=== PATIENT | female | born 1965 | race Caucasian/White ===

== ENCOUNTER 2018-05-20 14:07 | Emergency (ER) | payer OTHER ==
--- NOTE | 2018-05-20 15:09 | RAD REPORT ---
EXAM DESCRIPTION: Ilan Orr And Carissa (2 Views)05/20/2018 2:47 pm CLINICAL HISTORY: Cough COMPARISON: None FINDINGS: The lungs appear clear of acute infiltrate. The heart is normal size Lungs are hyperaerated. 30 millimeter oval structure overlies mid chest of on certain etiology. It ma y be related to prior surgery should be correlated clinically
--- NOTE | 2018-05-20 15:22 | RAD REPORT ---
EXAM DESCRIPTION: RAD - Foot Right 3 View - 05/20/2018 2:48 pm CLINICAL HISTORY: Right foot pain status post injury FINDINGS: No fracture or dislocation is seen. Soft tissue laceration involves the plantar aspect of the foot. A radiopaque foreign body not seen
[2018-05-20] MEDS ORDERED: LIDOCAINE 1% MPF 2 ML AMPULE ONE ×2 (15:45→16:18)
[2018-05-20] MEDS ORDERED: ALBUTEROL 2.5 MG/3 ML NEB SOL ONE (15:46)
[2018-05-20] MEDS ORDERED: IPRATROPIUM BROM 0.5MG/2.5ML ONE (15:46)
[2018-05-20] MEDS ORDERED: DOXYCYCLINE 100 MG CAP PO ONE (15:47)
[2018-05-20] MEDS ORDERED: NA CHLORIDE 0.9% 1,000 ML ONE (15:47)
[2018-05-20] MEDS ORDERED: FENTANYL CITR 100 MCG/2 ML ONE (15:47)
[2018-05-20] MEDS ORDERED: METHYLPREDNISOLONE 125 MG INJ ONE (15:59)
--- NOTE | 2018-05-20 16:35 | ER ---
Nurse's Notes [facility] Name: Ana Paula Gillis Age: 52 yrs Sex: Female : 1965 Arrival Date: 05/20/2018 Time: 14:09 Bed 19 Private MD: None, None Diagnosis: Acute bronchitis;Emphysema;Laceration without foreign body, right foot Presentation: 05/20 14:23 Presenting complaint: Patient states: "I stepped on glass about 30 minutes ago, and I aj1 think there some still stuck in my foot, also I'm really short of breath and I think I have pneumonia" Wound noted to right foot. Patient reports productive cough for the past 2 days. Shortness of breath when she has coughing spells. Transition of care: patient was not received from another setting of care. Onset of symptoms was May 18, 2018. Risk Assessment: Do you want to hurt yourself or someone else? Patient reports no desire to harm self or others. Initial Sepsis Screen: Does the patient meet any 2 criteria? No. Patient's initial sepsis screen is negative. Does the patient have a suspected source of infection? Yes: Productive cough/pneumonia. Care prior to arrival: None. 14:23 Method Of Arrival: Wheelchair aj1 14:23 Acuity: KURT 3 aj1 Triage Assessment: 14:27 General: Appears in no apparent distress. uncomfortable, Behavior is calm, cooperative, aj1 appropriate for age. Pain: Complains of pain in right foot Pain currently is 10 out of 10 on a pain scale. Neuro: Level of Consciousness is awake, alert, obeys commands. Cardiovascular: Patient's skin is warm and dry. Respiratory: Reports shortness of breath during coughing spells cough that is productive, Airway is patent Respiratory effort is even, unlabored, Respiratory pattern is regular, symmetrical. Musculoskeletal: Range of motion: intact in all extremities. 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 - Social history:: Smoking status: Patient uses tobacco products, smokes one-half pack cigarettes per day. - Ebola Screening: : Patient denies travel to an Ebola-affected area in the 21 days before illness onset. Screenin:20 Abuse screen: Denies threats or abuse. Nutritional screening: No deficits noted. em Tuberculosis screening: No symptoms or risk factors identified. Fall Risk None identified. Assessment: 15:20 General: Appears in no apparent distress. uncomfortable, Behavior is calm, cooperative, em Denies fever. Pain: Complains of pain in right foot Pain currently is 10 out of 10 on a pain scale. Neuro: Level of Consciousness is awake, alert, obeys commands, Oriented to person, place, time, situation. Cardiovascular: Patient's skin is warm and dry. Respiratory: Reports shortness of breath cough that is productive, Airway is patent Respiratory effort is even, unlabored, Respiratory pattern is regular, symmetrical, Breath sounds with wheezes bilaterally. the patient has mild shortness of breath. GI: Abdomen is flat, Patient currently denies nausea, vomiting. : No signs and/or symptoms were reported regarding the genitourinary system. Derm: Skin is intact, is healthy with good turgor, Skin is pink, warm \\T\\ dry. Musculoskeletal: Range of motion: intact in all extremities. Injury Description: Laceration sustained to right foot is clean, 0.5 to 2.5 cm long, was sustained 30-60 minutes ago. a small amount of bleeding noted at this time. 15:35 Reassessment: I agree with previous assessment. hb 16:00 Reassessment: Patient appears in no apparent distress at this time. Patient and/or em family updated on plan of care and expected duration. Pain level reassessed. Patient is alert, oriented x 3, equal unlabored respirations, skin warm/dry/pink. rates pain 8/10 Patient states feeling better. Vital Signs: 14:27 BP 114 / 75; Pulse 76; Resp 18; Temp 97.4; Pulse Ox 98% on R/A; Weight 54.43 kg (R); aj1 Height 5 ft. 9 in. (175.26 cm) (R); Pain 10/10; 15:20 BP 136 / 89; Pulse 82; Resp 20; Pulse Ox 98% on R/A; Pain 10/10; em 16:30 BP 127 / 76; Pulse 71; Resp 16; Pulse Ox 99% on R/A; em 14:27 Body Mass Index 17.72 (54.43 kg, 175.26 cm) aj1 ED Course: 14:09 Patient arrived in ED. sb2 14:10 None, None is Private Physician. sb2 14:25 Triage completed. aj1 14:27 Arm band placed on Patient placed in waiting room, Patient notified of wait time. aj1 14:47 XRAY Chest Pa And Lat (2 Views) In Process Unspecified. EDMS 14:47 XRAY Foot RIGHT 3 View In Process Unspecified. EDMS 15:00 Deniz Schultz LVN is Primary Nurse. em 15:16 Herrera Garrison PA is PHCP. jr8 15:16 Kalia Knight MD is Attending Physician. jr8 15:20 Patient has correct armband on for positive identification. Placed in gown. Bed in low em position. Call light in reach. Adult w/ patient. Pulse ox on. NIBP on. 15:50 Inserted saline lock: 22 gauge in right forearm, using aseptic technique. em 16:57 No provider procedures requiring assistance completed. IV discontinued, intact, em bleeding controlled, No redness/swelling at site. Pressure dressing applied. Administered Medications: 15:42 Drug: Albuterol - atroVENT (3:1) (2.5 mg - 0.5 mg) 3 ml Route: Nebulizer; em 16:46 Follow up: Response: No adverse reaction; Marked relief of symptoms em 15:48 Drug: NS 0.9% 1000 ml Route: IV; Rate: 1000 ml; Site: right forearm; em 17:00 Follow up: IV Status: Completed infusion; IV Intake: 1000ml em 15:48 Drug: Doxycycline 100 mg Route: PO; em 16:47 Follow up: Response: No adverse reaction em 15:57 Drug: SOLU-Medrol 125 mg Route: IVP; Site: right forearm; hb 16:46 Follow up: Response: No adverse reaction em 15:57 Drug: fentaNYL (PF) 50 mcg Route: IVP; Site: right forearm; hb 16:47 Follow up: Response: No adverse reaction; Pain is decreased em 16:38 Drug: Ativan 0.5 mg Route: PO; em 16:59 Follow up: Response: No adverse reaction; Marked relief of symptoms em Intake: 17:00 IV: 1000ml; Total: 1000ml. em Outcome: 16:34 Discharge ordered by MD. landa 16:57 Discharged to home with crutches. em 16:57 Condition: good 16:57 Discharge instructions given to patient, family, Instructed on discharge instructions, follow up and referral plans. no drinking with medication, no driving heavy equipment, medication usage, crutch walking, wound care, Demonstrated understanding of instructions, follow-up care, medications, wound care, crutch walking, Prescriptions given X 4. 17:00 Patient left the ED. em Signatures: Dispatcher [employer] Ricarda Scott RN RN aj1 Deniz Schultz LVN POND SAWYER em Herrera Garrison PA PA jr8 Naila Claudio RN RN hb Billeau, Sheri sb2 Corrections: (The following items were deleted from the chart) 16:05 15:20 No provider procedures requiring assistance completed. em em
--- NOTE | 2018-05-20 16:35 | EDPHYS ---
Physician Documentation [facility] Name: Ana Paula Gillis Age: 52 yrs Sex: Female : 1965 Arrival Date: 05/20/2018 Time: 14:09 Bed 19 Private MD: None, None ED Physician Kalia Knight HPI: 05/20 16:55 This 52 yrs old Female presents to ER via Wheelchair with complaints of Foot jr8 Injury - GLASS, POSS PNEUMONIA. 16:55 Onset: The symptoms/episode began/occurred acutely, today. Severity of symptoms: At jr8 their worst the symptoms were moderate, in the emergency department the symptoms are unchanged. The patient has not experienced similar symptoms in the past. The patient has not recently seen a physician. Patient came to ED with two different complaints. First was she accidently stepped on glass causing threw and threw laceration to right foot. Second was shortness of breath and cough over the past couple of days that has progressively worsened. History of emphysema . 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 - Social history:: Smoking status: Patient uses tobacco products, smokes one-half pack cigarettes per day. - Ebola Screening: : Patient denies travel to an Ebola-affected area in the 21 days before illness onset. ROS: 16:55 Eyes: Negative for injury, pain, redness, and discharge, ENT: Negative for injury, jr8 pain, and discharge, Neck: Negative for injury, pain, and swelling, Cardiovascular: Negative for chest pain, palpitations, and edema, Abdomen/GI: Negative for abdominal pain, nausea, vomiting, diarrhea, and constipation, Back: Negative for injury and pain, MS/Extremity: Negative for injury and deformity, Neuro: Negative for headache, weakness, numbness, tingling, and seizure. 16:55 Respiratory: Positive for cough, shortness of breath, wheezing. 16:55 Skin: Positive for laceration(s), of the . Exam: 16:55 Eyes: Pupils equal round and reactive to light, extra-ocular motions intact. Lids and jr8 lashes normal. Conjunctiva and sclera are non-icteric and not injected. Cornea within normal limits. Periorbital areas with no swelling, redness, or edema. ENT: Nares patent. No nasal discharge, no septal abnormalities noted. Tympanic membranes are normal and external auditory canals are clear. Oropharynx with no redness, swelling, or masses, exudates, or evidence of obstruction, uvula midline. Mucous membranes moist. Neck: Trachea midline, no thyromegaly or masses palpated, and no cervical lymphadenopathy. Supple, full range of motion without nuchal rigidity, or vertebral point tenderness. No Meningismus. Cardiovascular: Regular rate and rhythm with a normal S1 and S2. No gallops, murmurs, or rubs. Normal PMI, no JVD. No pulse deficits. Abdomen/GI: Soft, non-tender, with normal bowel sounds. No distension or tympany. No guarding or rebound. No evidence of tenderness throughout. Back: No spinal tenderness. No costovertebral tenderness. Full range of motion. MS/ Extremity: Pulses equal, no cyanosis. Neurovascular intact. Full, normal range of motion. Neuro: Awake and alert, GCS 15, oriented to person, place, time, and situation. Cranial nerves II-XII grossly intact. Motor strength 5/5 in all extremities. Sensory grossly intact. Cerebellar exam normal. Normal gait. 16:55 Respiratory: the patient does not display signs of respiratory distress, Respirations: normal, symetrical, no use of accessory muscles, no grunting, no evidence of nasal flaring, no prolonged exhalations, no pursed lip breathing, no retractions, no shallow respirations, no splinting, no tachypnea, Breath sounds: rhonchi, that are mild, are heard diffusely, wheezing: expiratory that is moderate, is heard diffusely. 16:55 Skin: two lacerations noted to right foot. First to right lateral heel. Second to side of heel where glass shard had exited foot. Vital Signs: 14:27 BP 114 / 75; Pulse 76; Resp 18; Temp 97.4; Pulse Ox 98% on R/A; Weight 54.43 kg (R); aj1 Height 5 ft. 9 in. (175.26 cm) (R); Pain 10/10; 15:20 BP 136 / 89; Pulse 82; Resp 20; Pulse Ox 98% on R/A; Pain 10/10; em 16:30 BP 127 / 76; Pulse 71; Resp 16; Pulse Ox 99% on R/A; em 14:27 Body Mass Index 17.72 (54.43 kg, 175.26 cm) aj1 Laceration: 16:31 Wound Repair of 2.5cm ( 1.0in ) subcutaneous laceration to right foot. Irregularly jr8 shaped.. Minimal bleeding noted.. Distal neuro/vascular/tendon intact. Anesthesia: Local anesthetic administered with 4 mls of 1% lidocaine. Wound prep: Extensive cleansing with betadine by me, Wound irrigation with saline by me, Wound explored extensively, Copious irrigation. Skin closed with 3 3-0 Prolene using interrupted sutures and sterile technique. Patient tolerated well. 16:31 Wound Repair of 2cm ( 0.8in ) subcutaneous laceration to right foot. Irregularly jr8 shaped.. Minimal bleeding noted.. Distal neuro/vascular/tendon intact. Anesthesia: Local anesthetic administered with 2 mls of 1% lidocaine. Wound prep: Extensive cleansing with betadine, Wound irrigation with saline, Wound explored extensively, Copious irrigation. Skin closed with 2 3-0 Prolene using interrupted sutures and sterile technique. Patient tolerated well. MDM: 15:16 Patient medically screened. jr8 16:31 Data reviewed: vital signs, nurses notes, radiologic studies, plain films, and as a jr8 result, I will discharge patient. Data interpreted: Pulse oximetry: on room air is 98 %. Interpretation: normal. Counseling: I had a detailed discussion with the patient and/or guardian regarding: the historical points, exam findings, and any diagnostic results supporting the discharge/admit diagnosis, radiology results, the need for outpatient follow up, a family practitioner, to return to the emergency department if symptoms worsen or persist or if there are any questions or concerns that arise at home. Response to treatment: the patient's symptoms have markedly improved after treatment. 05/20 14:28 Order name: XRAY Chest Pa And Lat (2 Views); Complete Time: 15:34 aj1 05/20 14:29 Order name: XRAY Foot RIGHT 3 View; Complete Time: 15:34 aj1 05/20 15:33 Order name: IV; Complete Time: 15:48 jr8 05/20 16:33 Order name: Crutches; Complete Time: 16:37 jr8 Administered Medications: 15:42 Drug: Albuterol - atroVENT (3:1) (2.5 mg - 0.5 mg) 3 ml Route: Nebulizer; em 16:46 Follow up: Response: No adverse reaction; Marked relief of symptoms em 15:48 Drug: NS 0.9% 1000 ml Route: IV; Rate: 1000 ml; Site: right forearm; em 17:00 Follow up: IV Status: Completed infusion; IV Intake: 1000ml em 15:48 Drug: Doxycycline 100 mg Route: PO; em 16:47 Follow up: Response: No adverse reaction em 15:57 Drug: SOLU-Medrol 125 mg Route: IVP; Site: right forearm; hb 16:46 Follow up: Response: No adverse reaction em 15:57 Drug: fentaNYL (PF) 50 mcg Route: IVP; Site: right forearm; hb 16:47 Follow up: Response: No adverse reaction; Pain is decreased em 16:38 Drug: Ativan 0.5 mg Route: PO; em 16:59 Follow up: Response: No adverse reaction; Marked relief of symptoms em Disposition: 05/20/18 16:34 Discharged to Home. Impression: Acute bronchitis, Emphysema, Laceration without foreign body, right foot. - Condition is Stable. - Discharge Instructions: Acute Bronchitis, Adult, Laceration Care, Adult. - Prescriptions for Prednisone 20 mg Oral Tablet - take 1 tablet by ORAL route once daily for 5 days; 5 tablet. Tylenol- Codeine #3 300-30 mg Oral Tablet - take 2 tablets by ORAL route every 6 hours As needed; 12 tablet. Doxycycline Monohydrate 100 mg Oral Tablet - take 1 tablet by ORAL route every 12 hours for 10 days; 20 tablet. Albuterol Sulfate 90 mcg/actuation - inhale 1-2 puff by INHALATION route every 4-6 hours; 1 Inhaler. - Medication Reconciliation Form, Thank You Letter, Antibiotic Education, Prescription Opioid Use form. - Follow up: Private Physician; When: 7 - 10 days; Reason: Wound Recheck, Recheck today's complaints, Continuance of care, Staple/Suture removal, Re-evaluation by your physician. - Problem is new. - Symptoms have improved. Addendum: 05/31/2018 07:29 Co-signature as Attending Physician, Kalia Knight MD I agree with the assessment and k dr plan of care. Signatures: Dispatcher [employer] Ricarda Scott, RN RN aj1 Kalia Knight MD MD [facility] Deniz Schultz, CARE TRANSITIONS MANAGER CARE TRANSITIONS MANAGER em Herrera Garrison, TERESA PA jr8 Naila Claudio, THEO RN Corrections: (The following items were deleted from the chart) 05/20 17:00 16:34 05/20/2018 16:34 Discharged to Home. Impression: Acute bronchitis; Emphysema; em Laceration without foreign body, right foot. Condition is Stable. Forms are Medication Reconciliation Form, Thank You Letter, Antibiotic Education, Prescription Opioid Use. Follow up: Private Physician; When: 7 - 10 days; Reason: Wound Recheck, Recheck today's complaints, Continuance of care, Staple/Suture removal, Re-evaluation by your physician. Problem is new. Symptoms have improved. jr8
[2018-05-20] MEDS ORDERED: LORAZEPAM 0.5 MG TABLET ONE (16:42)
--- OUTSIDE RECORDS SUMMARY | 2018-05-21 17:31 | XMS REPORT | Clinical Summary ---
:1965 Author Organization [facility] Address [address] [place] [address] Care Team Providers Name Role Phone Asked, No Pcp Primary Care Provider Unavailable Allergies No Known Allergies Medications Medication Sig Dispensed Refills Start Date End Date Status ondansetron ODT Take 1 tablet 20 tablet 0 05/01/2017 05/21/2017 (ZOFRAN ODT) 4 MG (4 mg total) by disintegrating tablet mouth every 8 (eight) hours as needed for nausea or vomiting for up to 20 days. Active Problems Not on file Social History Tobacco Use Types Packs/Day Years Used Date Current Every Day Smoker Cigarettes 1 Smokeless Tobacco: Never Used Alcohol Use Drinks/Week oz/Week Comments No Sex Assigned at Date Recorded Not on file Job Start Date Occupation Industry Not on file Not on file Not on file Travel History Travel Start Travel End No recent travel history available. Last Filed Vital Signs Not on file Plan of Treatment Health Maintenance Due Date Last Done Comments CERVICAL CANCER SCREENING 1985 BREAST CANCER SCREENING 2014 COLON CANCER SCREENING 2014 SHINGLES VACCINES (1 of 2) 2014 INFLUENZA VACCINE 12/30/2017 Results Not on fileafter 05/19/2017 Insurance Payer Benefit Plan / Group Subscriber ID Type Phone Address [facility] x[facility]xxx [employer] Advance Directives Patient has advance care planning documents on file. For more information, please contact:[place] [phone] [place] [address]
--- OUTSIDE RECORDS SUMMARY | 2018-05-21 17:32 | XMS REPORT | Clinical Summary ---
:1965 Author Organization [facility] Address [address] [place] [address] Care Team Providers Name Role Phone Pcp, No Primary Care Provider Unavailable Allergies No Known Allergies Medications Medication Sig Dispensed Refills Start Date End Date Status potassium 99 mg Take by 0 Active TabIndications: mouth daily. Chronic hepatitis C without hepatic coma (HCC) milk thistle 175 mg Take 175 mg 0 Active tabletIndications: by mouth Chronic hepatitis C daily. without hepatic coma (HCC) MULTIVITAMIN ORAL Take 1 0 03/28/2018 Discontinued tablet by mouth daily. aspirin 81 MG EC Take 81 mg 0 03/28/2018 Discontinued tablet by mouth daily. clonazePAM (KLONOPIN) Take 0.5 mg 0 02/25/2018 Discontinued 0.5 MG tablet by mouth 2 (two) times daily as needed for Anxiety. QUE[facility] (SEROQUEL) Take 100 mg 0 02/25/2018 Discontinued 100 MG tablet by mouth nightly. atorvastatin Take 80 mg 0 10/03/2016 10/03/2017 (LIPITOR) 40 MG by mouth. tabletIndications: Chronic hepatitis C without hepatic coma (HCC), Abnormal liver enzymes, Hepatic steatosis, Hyperlipidemia, unspecified hyperlipidemia type, Drug abuse (HCC), Immunity status testing Active Problems Problem Noted Date Tobacco abuse 02/28/2018 Other emphysema 02/28/2018 Chronic hepatitis C without hepatic coma 02/19/2017 Abnormal liver enzymes 02/19/2017 Hepatic steatosis 02/19/2017 HLD (hyperlipidemia) 02/19/2017 Drug abuse 02/19/2017 Immunity status testing 02/19/2017 Transient cerebral ischemia, unspecified type 09/06/2016 Encounters Date Type Specialty Care Team Description 02/28/2018 Telephone Hepatology Fritz Rubio, Results BINDERY TECHNICIAN 02/25/2018 Office Visit Hepatology Javier Sánchez Chronic hepatitis C without hepatic coma (HCC) (Primary Dx); Drug abuse; Fritz Rubio, Immunity status testing; BINDERY TECHNICIAN Hepatic steatosis; Abnormal liver enzymes; Tobacco abuse; Other emphysema (HCC) 02/25/2018 Orders Only Hepatology Fritz Rubio, Abnormal liver enzymes BINDERY TECHNICIAN (Primary Dx) 02/10/2018 Telephone Hepatology Jane Kim STARTING HCV THERAPY; MEDICATION UPDATE 11/13/2017 Documentation Hepatology Gracia Cheng RN 07/01/2017 Orders Only Hepatology Jane Kim Chronic hepatitis C without hepatic coma (HCC) 07/01/2017 Orders Only Hepatology Javier Sánchez Chronic hepatitis C without hepatic coma (HCC) (Primary Dx) after 05/19/2017 Family History Medical History Relation Name Comments Heart disease Mother Osteoporosis Mother Relation Name Status Comments Mother Social History Tobacco Use Types Packs/Day Years Used Date Current Every Day Smoker Cigarettes Smokeless Tobacco: Never Used Comments: less than half a pack/day Alcohol Use Drinks/Week oz/Week Comments Yes 2 Glasses of wine 1.2 occassionally Sex Assigned at Date Recorded Not on file Job Start Date Occupation Industry Not on file Not on file Not on file Travel History Travel Start Travel End No recent travel history available. Last Filed Vital Signs Vital Sign Reading Time Taken Blood Pressure 126/82 02/25/2018 2:21 PM CDT Pulse 64 02/25/2018 2:21 PM CDT Temperature 37 C (98.6 F) 02/25/2018 2:21 PM CDT Respiratory Rate 18 02/25/2018 2:21 PM CDT Oxygen Saturation 98% 02/25/2018 2:21 PM CDT Inhaled Oxygen Concentration - - Weight 50.8 kg (112 lb 1.6 oz) 02/25/2018 2:21 PM CDT Height 175.3 cm (5' 9") 02/25/2018 2:21 PM CDT Body Mass Index 16.55 02/25/2018 2:21 PM CDT Plan of Treatment Date Type Specialty Care Team Description 05/31/2018 Office Visit Hepatology [facility] Maintenance Due Date Last Done Comments INFLUENZA VACCINE 03/01/2018 Implants Implanted Type Area Keyboard Action Assembler Device Shelf Model / Identifier Expiration Serial / Date Lot Amplatzer Pfo Occluder IMPLANTS N/A: [employer] 04/30/2021 [id number] / Implanted: Qty: 1 on 09/08/2016 by Alexandre Lawton MD [employer] / [id number] Procedures Procedure Name Priority Date/Time Associated Comments Diagnosis CBC W/PLT COUNT & Routine 02/25/2018 3:48 Chronic hepatitis C Results for this AUTO DIFFERENTIAL PM CDT without hepatic procedure are in coma (HCC) the results section. ALPHA FETOPROTEIN Routine 02/25/2018 3:48 Chronic hepatitis C Results for this (AFP), TUMOR MARKER PM CDT without hepatic procedure are in coma (HCC) the results section. CBC W/PLT COUNT & Routine 02/25/2018 3:48 Chronic hepatitis C Results for this AUTO DIFFERENTIAL PM CDT without hepatic procedure are in coma (HCC) the results section. HEPATIC FUNCTION Routine 02/25/2018 3:48 Chronic hepatitis C Results for this PANEL PM CDT without hepatic procedure are in coma (HCC) the results section. BASIC METABOLIC PANEL Routine 02/25/2018 3:48 Chronic hepatitis C Results for this (7) PM CDT without hepatic procedure are in coma (HCC) the results section. HEPATITIS C PCR, Routine 08/20/2017 3:23 Chronic hepatitis C Results for this QUANTITATIVE PM CDT without hepatic procedure are in coma (HCC) the results section. CBC W/PLT COUNT & Routine 08/20/2017 3:23 Chronic hepatitis C Results for this AUTO DIFFERENTIAL PM CDT without hepatic procedure are in coma (HCC) the results section. HEPATIC FUNCTION Routine 08/20/2017 3:23 Chronic hepatitis C Results for this PANEL PM CDT without hepatic procedure are in coma (HCC) the results section. BASIC METABOLIC PANEL Routine 08/20/2017 3:23 Chronic hepatitis C Results for this (7) PM CDT without hepatic procedure are in coma (HCC) the results section. after 05/19/2017 Results CBC with platelet count + automated diff (02/25/2018 3:48 PM CDT) WBC 6.9 3.5 - 10.5 K/L [facility] RBC 4.66 3.93 - 5.22 M/L [facility] Hemoglobin 14.3 11.2 - 15.7 GM/DL [facility] Hematocrit 46.0 (H) 34.1 - 44.9 % [facility] MCV 98.7 (H) 79.4 - 94.8 fL [facility] MCH 30.7 25.6 - 32.2 pg [facility] MCHC 31.1 (L) 32.2 - 35.5 GM/DL [facility] RDW 13.0 11.7 - 14.4 % [facility] Platelets 216 150 - 450 K/CU MM [facility] MPV 11.0 9.4 - 12.3 fL [facility] nRBC 0 0 - 0 /100 WBC [facility] % Neutros 64 % [facility] % Lymphs 28 % [facility] % Monos 7 % [facility] % Eos 0 % [facility] % Baso 1 % [facility] # Neutros 4.37 1.56 - 6.13 K/L [facility] # Lymphs 1.95 1.18 - 3.74 K/L [facility] # Monos 0.48 (H) 0.24 - 0.36 K/L [facility] # Eos 0.00 (L) 0.04 - 0.36 K/L [facility] # Baso 0.06 0.01 - 0.08 K/L [facility] Immature Granulocytes-Relative 0 0 - 1 % [facility] Specimen Blood Performing Organization Address City/State/Zipcode Phone Number [facility] [address] [place] [address] [phone] CENTER Alpha fetoprotein (AFP), tumor marker (02/25/2018 3:48 PM CDT) Alpha-Fetoprotein 3.6 <10.0 ng/mL [facility] Specimen Blood Performing Organization Address City/[facility] Phone Number [address] [phone] [place] Hepatic function panel (02/25/2018 3:48 PM CDT)Only the most recent of2 resultswithin the time period is included. Protein, Total 8.5 (H) 6.0 - 8.3 gm/dL [facility] Albumin 4.2 3.5 - 5.0 g/dL [facility] Total Bilirubin 0.3 0.2 - 1.2 mg/dL [facility] Bilirubin, Direct 0.2 0.1 - 0.5 mg/dL [facility] Alkaline Phosphatase 114 40 - 150 U/L [facility] AST 178 (H) 5 - 34 U/L [facility] ALT 187 (H) 6 - 55 U/L [facility] Specimen Blood Performing Organization Address City/[facility] Hospitalcode Phone Number [address] [address] [phone] [place] Basic Metabolic Panel (02/25/2018 3:48 PM CDT)Only the most recent of2 resultswithin the time period is included. Sodium 139 136 - 145 meq/L [facility] Potassium 4.7 3.5 - 5.1 meq/L [facility] Chloride 105 98 - 107 meq/L [facility] CO2 28 22 - 29 meq/L [facility] BUN 13 7 - 21 mg/dL [facility] Creatinine 0.79 0.57 - 1.25 mg/dL [facility] Glucose 108 (H) 70 - 105 mg/dL [facility] Calcium 10.1 8.4 - 10.2 mg/dL [facility] EGFR 76Comment: ESTIMATED GFR IS mL/min/1.73 sq m [facility] NOT ACCURATE CREATININE [facility] CENTER CLEARANCE IN PREDICTING GLOMERULAR FILTRATION RATE. ESTIMATED GFR IS NOT APPLICABLE FOR DIALYSIS PATIENTS. Specimen Blood Performing Organization Address City/[facility]/Zipcode Phone Number [facility] [address] [place] [address] [phone] CENTER Hepatitis C RNA, Quantitative (08/20/2017 3:23 PM CDT) Hep C Pcr, Quant 8,680,000 (H) NOT DETECTED IU/mL [facility] HCV RNA, QUANTITATIVE 6.94 (H) NOT DETECTED Log [facility] REAL TIME PCR ([facility]) IU/mL Comment: [facility] Comment: This test was performed using Real-Time Polymerase Chain Reaction. Reportable Range: 15 IU/mL to 100,000,000 IU/mL (1.18 Log IU/mL to 8.00 Log IU/mL). The analytical performance characteristics of this assay have been determined by [facility]. The modifications have not been cleared or approved by the FDA. This assay has been validated pursuant to the CLIA regulations and is used for clinical purposes. For more information on this test, go to: http://education.weezim.com/faq/WYF02q6 (This link is being provided for informational/ educational purposes only.) Specimen Blood Narrative Performed At FASTING:NO [facility] FASTING: NO Resulting Agency Comment Performing Organization Information: Site ID: [id number] Name: [facility] Address: [address] [place] [address] Director: Dr. Juni Esteban Performing Organization Address City/[facility]/Zipcode Phone Number [facility] [address] [place] [address] [facility] CBC with platelet count + automated diff (08/20/2017 3:23 PM CDT) WBC 4.8 3.8 - 10.8 Thousand/uL [facility] RBC 4.24 3.80 - 5.10 Million/uL [facility] Hemoglobin 13.1 11.7 - 15.5 g/dL [facility] Hematocrit 38.9 35.0 - 45.0 % [facility] MCV 91.7 80.0 - 100.0 fL [facility] MCH 30.9 27.0 - 33.0 pg [facility] MCHC 33.7 32.0 - 36.0 g/dL [facility] RDW 12.3 11.0 - 15.0 % [facility] Platelets 194 140 - 400 Thousand/uL [facility] MPV 11.2 7.5 - 12.5 fL [facility] # Neutros 2,794 1,500 - 7,800 cells/uL [facility] # Lymphs 1,584 850 - 3,900 cells/uL [facility] # Monos 384 200 - 950 cells/uL [facility] # Eos 0 (L) 15 - 500 cells/uL [facility] # Baso 38 0 - 200 cells/uL [facility] % Neutros 58.2 % [facility] % Lymphs 33.0 % [facility] % Monos 8.0 % [facility] % Eos 0.0 % [facility] % Baso 0.8 % [facility] Specimen Blood Narrative Performed At FASTING:NO [facility] FASTING: NO Resulting Agency Comment Performing Organization Information: Site ID: [id number] Name: [facility] Address: [address] [place] [id number] Director: Paris Gonzales MD Performing Organization Address City/State/[facility]code Phone Number [facility] [address] [place] [address] [facility] after 05/19/2017 Insurance Payer Benefit Plan / Group Subscriber ID Type Phone Address [place]ICA[place] xxxxxxxxx Medicaid Advance Directives For more information, please contact:[address] [phone] Code Status Date Activated Date Inactivated Comments Full Code 09/08/2016 1:15 PM 09/09/2016 4:53 PM This code status was determined by: Patient Full Code 09/06/2016 3:46 AM 09/08/2016 1:15 PM This code status was determined by: Patient
--- OUTSIDE RECORDS SUMMARY | 2018-05-21 17:32 | XMS REPORT ---
:1965 [facility] [address] [place] [address] Care Team Providers Name Role Phone LIBERTY, EDGAR LOVELL Unavailable Unavailable DANIELLE GARCIA Unavailable Unavailable SHEREE GONZALEZ Unavailable Unavailable JAVIER HWANG Unavailable Unavailable BRYNN WHYTE Unavailable Unavailable Problems This patient has no known problems. Allergies, Adverse Reactions, Alerts This patient has no known allergies or adverse reactions. Medications This patient has no known medications. Results Test Description Test Time Test Comments Text Results Atomic Results Result Comments ALPHA FETOPROTEIN (AFP), TUMOR MARKER 2018-02-25 17:18:00 Test Item Value Reference Range Comments ALPHA-FETOPROTEIN (BEAKER) (test ujhj=0252) 3.6 ng/mL <10.0 HEPATIC FUNCTION [id number] 17:00:00 Test Item Value Reference Range Comments TOTAL PROTEIN (BEAKER) (test eemd=175) 8.5 gm/dL 6.0-8.3 ALBUMIN (BEAKER) (test tmim=4845) 4.2 g/dL 3.5-5.0 BILIRUBIN TOTAL (BEAKER) (test qcgl=529) 0.3 mg/dL 0.2-1.2 BILIRUBIN DIRECT (BEAKER) (test znxw=550) 0.2 mg/dL 0.1-0.5 ALKALINE PHOSPHATASE (BEAKER) (test zohp=340) 114 U/L 40-150 AST (SGOT) (BEAKER) (test slml=226) 178 U/L 5-34 ALT (SGPT) (BEAKER) (test ngga=706) 187 U/L 6-55 BASIC METABOLIC [id number] 17:00:00 Test Item Value Reference Range Comments SODIUM (BEAKER) (test 139 meq/L 136-145 rjin=746) POTASSIUM (BEAKER) (test 4.7 meq/L 3.5-5.1 ltia=408) CHLORIDE (BEAKER) (test 105 meq/L 98-107 jpdg=124) CO2 (BEAKER) (test 28 meq/L 22-29 xdgb=479) BLOOD UREA NITROGEN 13 mg/dL 7-21 (BEAKER) (test qhyu=956) CREATININE (BEAKER) (test 0.79 mg/dL 0.57-1.25 rdxa=963) GLUCOSE RANDOM (BEAKER) 108 mg/dL 70-105 (test mfzd=266) CALCIUM (BEAKER) (test 10.1 mg/dL 8.4-10.2 bvnr=802) EGFR (BEAKER) (test 76 mL/min/1.73 sq m ESTIMATED GFR IS NOT glyr=5152) ACCURATE CREATININE CLEARANCE IN PREDICTING GLOMERULAR FILTRATION RATE. ESTIMATED GFR IS NOT APPLICABLE FOR DIALYSIS PATIENTS. CBC W/PLT COUNT & AUTO [id number] 16:51:00 Test Item Value Reference Range Comments WHITE BLOOD CELL COUNT (BEAKER) (test jatc=220) 6.9 K/ L 3.5-10.5 RED BLOOD CELL COUNT (BEAKER) (test gayu=461) 4.66 M/ L 3.93-5.22 HEMOGLOBIN (BEAKER) (test tiyf=775) 14.3 GM/DL 11.2-15.7 HEMATOCRIT (BEAKER) (test pehe=022) 46.0 % 34.1-44.9 MEAN CORPUSCULAR VOLUME (BEAKER) (test dcac=827) 98.7 fL 79.4-94.8 MEAN CORPUSCULAR HEMOGLOBIN (BEAKER) (test 30.7 pg 25.6-32.2 aikj=636) MEAN CORPUSCULAR HEMOGLOBIN CONC (BEAKER) (test 31.1 GM/DL 32.2-35.5 pvqr=134) RED CELL DISTRIBUTION WIDTH (BEAKER) (test 13.0 % 11.7-14.4 dijl=016) PLATELET COUNT (BEAKER) (test wrkx=286) 216 K/CU MM 150-450 MEAN PLATELET VOLUME (BEAKER) (test nsmg=008) 11.0 fL 9.4-12.3 NUCLEATED RED BLOOD CELLS (BEAKER) (test 0 /100 WBC 0-0 rmfc=833) NEUTROPHILS RELATIVE PERCENT (BEAKER) (test 64 % nhvh=345) LYMPHOCYTES RELATIVE PERCENT (BEAKER) (test 28 % wapp=188) MONOCYTES RELATIVE PERCENT (BEAKER) (test 7 % inee=472) EOSINOPHILS RELATIVE PERCENT (BEAKER) (test 0 % qeed=744) BASOPHILS RELATIVE PERCENT (BEAKER) (test 1 % qhpo=884) NEUTROPHILS ABSOLUTE COUNT (BEAKER) (test 4.37 K/ L 1.56-6.13 ufyj=407) LYMPHOCYTES ABSOLUTE COUNT (BEAKER) (test 1.95 K/ L 1.18-3.74 sodu=442) MONOCYTES ABSOLUTE COUNT (BEAKER) (test 0.48 K/ L 0.24-0.36 adnt=375) EOSINOPHILS ABSOLUTE COUNT (BEAKER) (test 0.00 K/ L 0.04-0.36 swup=528) BASOPHILS ABSOLUTE COUNT (BEAKER) (test 0.06 K/ L 0.01-0.08 kqnq=712) IMMATURE GRANULOCYTES-RELATIVE PERCENT (BEAKER) 0 % 0-1 (test kbhk=3777) TOXICOLOGY SCREEN, [id number] 09:16:00 Test Item Value Reference Range Comments SCAN RESULT (test pqip=3378597) LIVER FIBROSIS, FIBROTEST-ACTITEST [id number] 12:01:00 Test Item Value Reference Range Comments FIBROSIS SCORE (QUEST) (test ueud=0416738) FIBROSIS STAGE (QUEST) (test voxi=8570175) FIBROSIS INTERPRETATION ([facility]) (test yfei=1907432) NECROINFLAMMAT ACTIVITY GRADE ([facility]) (test kugt=8562630) NECROINFLAMMAT INTERP (QUEST) (test pvap=1314640) BILIRUBIN, TOTAL (QUEST) (test dpmz=3216057) GGT (QUEST) (test rtli=2799963) ALT (SGPT) ([facility]) (test nwmn=1175308) ALPHA 2 MACROGLOBULIN (QUEST) (test qxka=7932314) HAPTOGLOBIN (QUEST) (test mkqc=0790937) APOLIPOPROTEIN A-1 (QUEST) (test kicm=1434712) NECROINFLAM ACT SCORE (QUEST) (test aibg=4987924) HEPATITIS C PCR, [id number] 12:51:00 Test Item Value Reference Range Comments HCV NUMERIC RESULT (BEAKER) (test kmyu=7506) [id number] IU/mL <15 This test uses a Real-Time Polymerase Chain Reaction (RT-PCR) methodology and was performed using ARTIE Ampliprep/ARTIE TaqMan HCV test kit version 2.0 ( [employer]).Reportable range for this assay is 15 - 100,000, 000 IU per mL (1.18 - 8.00 Log IU/mL).BASIC METABOLIC [id number] 17:10:00 Test Item Value Reference Range Comments SODIUM (BEAKER) (test 139 meq/L 136-145 aswt=958) POTASSIUM (BEAKER) (test 4.2 meq/L 3.5-5.1 ylgn=370) CHLORIDE (BEAKER) (test 105 meq/L 98-107 mbgh=912) CO2 (BEAKER) (test 24 meq/L 22-29 brpr=835) BLOOD UREA NITROGEN 11 mg/dL 7-21 (BEAKER) (test ynnp=918) CREATININE (BEAKER) (test 0.72 mg/dL 0.57-1.25 syeq=079) GLUCOSE RANDOM (BEAKER) 66 mg/dL 70-105 (test ixtv=906) CALCIUM (BEAKER) (test 10.6 mg/dL 8.4-10.2 lwzf=966) EGFR (BEAKER) (test 85 mL/min/1.73 sq m ESTIMATED GFR IS NOT qlnw=2822) ACCURATE CREATININE CLEARANCE IN PREDICTING GLOMERULAR FILTRATION RATE. ESTIMATED GFR IS NOT APPLICABLE FOR DIALYSIS PATIENTS. HEPATITIS B CORE ANTIBODY, [id number] 16:56:00 Test Item Value Reference Range Comments HEPATITIS B CORE TOTAL ANTIBODY (BEAKER) (test Reactive Nonreactive rbpg=111) HIV-1 ANTIGEN WITH HIV-1/2 [id number] 16:43:00 Test Item Value Reference Range Comments HIV-1 ANTIGEN WITH HIV 1\T\2 ANTIBODY (2) Nonreactive Nonreactive (BEAKER) (test hdua=4795) HEPATIC FUNCTION [id number] 16:41:00 Test Item Value Reference Range Comments TOTAL PROTEIN (BEAKER) (test atjc=580) 8.6 gm/dL 6.0-8.3 ALBUMIN (BEAKER) (test drfd=0344) 4.3 g/dL 3.5-5.0 BILIRUBIN TOTAL (BEAKER) (test ohra=644) 0.4 mg/dL 0.2-1.2 BILIRUBIN DIRECT (BEAKER) (test vgkb=110) 0.2 mg/dL 0.1-0.5 ALKALINE PHOSPHATASE (BEAKER) (test jmuw=948) 109 U/L 40-150 AST (SGOT) (BEAKER) (test lzrr=729) 269 U/L 5-34 ALT (SGPT) (BEAKER) (test oxal=819) 295 U/L 6-55 CBC W/PLT COUNT & AUTO [id number] 16:03:00 Test Item Value Reference Range Comments WHITE BLOOD CELL COUNT (BEAKER) (test kobw=303) 4.8 K/ L 3.5-10.5 RED BLOOD CELL COUNT (BEAKER) (test dmsw=738) 4.68 M/ L 3.93-5.22 HEMOGLOBIN (BEAKER) (test xqge=608) 14.5 GM/DL 11.2-15.7 HEMATOCRIT (BEAKER) (test bpal=441) 45.3 % 34.1-44.9 MEAN CORPUSCULAR VOLUME (BEAKER) (test ojsb=889) 96.8 fL 79.4-94.8 MEAN CORPUSCULAR HEMOGLOBIN (BEAKER) (test 31.0 pg 25.6-32.2 vuxx=719) MEAN CORPUSCULAR HEMOGLOBIN CONC (BEAKER) (test 32.0 GM/DL 32.2-35.5 aidz=402) RED CELL DISTRIBUTION WIDTH (BEAKER) (test 12.6 % 11.7-14.4 vnpf=828) PLATELET COUNT (BEAKER) (test meib=798) 189 K/CU MM 150-450 MEAN PLATELET VOLUME (BEAKER) (test rnmp=127) 11.4 fL 9.4-12.3 NUCLEATED RED BLOOD CELLS (BEAKER) (test 0 /100 WBC 0-0 ejnm=155) NEUTROPHILS RELATIVE PERCENT (BEAKER) (test 48 % rvif=207) LYMPHOCYTES RELATIVE PERCENT (BEAKER) (test 44 % psmw=736) MONOCYTES RELATIVE PERCENT (BEAKER) (test 8 % smos=627) EOSINOPHILS RELATIVE PERCENT (BEAKER) (test 0 % lsfe=476) BASOPHILS RELATIVE PERCENT (BEAKER) (test 1 % engs=983) NEUTROPHILS ABSOLUTE COUNT (BEAKER) (test 2.28 K/ L 1.56-6.13 zsay=857) LYMPHOCYTES ABSOLUTE COUNT (BEAKER) (test 2.11 K/ L 1.18-3.74 cafm=835) MONOCYTES ABSOLUTE COUNT (BEAKER) (test 0.37 K/ L 0.24-0.36 aadg=279) EOSINOPHILS ABSOLUTE COUNT (BEAKER) (test 0.00 K/ L 0.04-0.36 lkcp=535) BASOPHILS ABSOLUTE COUNT (BEAKER) (test 0.03 K/ L 0.01-0.08 rilo=619) IMMATURE GRANULOCYTES-RELATIVE PERCENT (BEAKER) 0 % 0-1 (test ajzp=3652) [id number] 15:29:00 Test Item Value Reference Range Comments ETHANOL (BEAKER) (test hgno=227) < mg/dL <=10 PROTHROMBIN [id number] 14:57:00 Test Item Value Reference Range Comments PROTIME (BEAKER) (test isdd=306) 12.3 seconds 11.7-14.7 INR (BEAKER) (test sxfl=210) 0.9 <=5.9 RECOMMENDED COUMADIN/WARFARIN INR THERAPY RANGESSTANDARD DOSE: 2.0 - 3.0 Includes: PROPHYLAXIS forvenous thrombosis, systemic embolization; TREATMENT for venous thrombosis and/or pulmonary embolus.HIGH RISK: Target INR is 2.5-3.5 for patients with mechanical heart valves.URINALYSIS WITH MICROSCOPIC IF [id number] 06:25:00 Test Item Value Reference Range Comments COLOR (BEAKER) (test xbtv=705) Yellow CLARITY (BEAKER) (test dpaw=315) Clear SPECIFIC GRAVITY UA (BEAKER) (test lfby=223) <= 1.001-1.035 PH UA (BEAKER) (test fmxk=563) 6.0 5.0-8.0 PROTEIN UA (BEAKER) (test bxis=725) Negative Negative GLUCOSE UA (BEAKER) (test dfer=948) Negative Negative KETONES UA (BEAKER) (test kwep=803) Negative Negative BILIRUBIN UA (BEAKER) (test kksx=700) Negative Negative BLOOD UA (BEAKER) (test jnzt=733) Negative Negative NITRITE UA (BEAKER) (test ljye=233) Negative Negative LEUKOCYTE ESTERASE UA (BEAKER) (test traf=030) Negative Negative UROBILINOGEN UA (BEAKER) (test lsuf=667) 0.2 mg/dL 0.2-1.0 SOURCE(BEAKER) (test zztw=4869) COMPREHENSIVE METABOLIC [id number] 05:32:00 Test Item Value Reference Range Comments TOTAL PROTEIN (BEAKER) 7.5 gm/dL 6.0-8.5 (test yksn=196) ALBUMIN (BEAKER) (test 3.9 g/dL 3.5-5.0 bfga=7333) ALKALINE PHOSPHATASE 87 U/L 30-115 (BEAKER) (test thnl=951) BILIRUBIN TOTAL (BEAKER) 0.5 mg/dL 0.1-1.2 (test iwmv=049) SODIUM (BEAKER) (test 141 meq/L 135-148 ixjn=939) POTASSIUM (BEAKER) (test 3.8 meq/L 3.6-5.5 brjx=559) CHLORIDE (BEAKER) (test 107 meq/L 98-106 fbmf=631) CO2 (BEAKER) (test 28 meq/L 20-29 eoye=198) BLOOD UREA NITROGEN 7 mg/dL 10-26 (BEAKER) (test tbsw=197) CREATININE (BEAKER) (test 0.73 mg/dL 0.50-1.20 aluf=390) GLUCOSE RANDOM (BEAKER) 100 mg/dL 70-110 (test lrto=045) CALCIUM (BEAKER) (test 9.6 mg/dL 8.5-10.5 ncjt=098) AST (SGOT) (BEAKER) (test 97 U/L 5-40 ikkl=591) ALT (SGPT) (BEAKER) (test 129 U/L 5-50 bzto=550) EGFR (BEAKER) (test 84 mL/min/1.73 sq m ESTIMATED GFR IS NOT uzps=1976) ACCURATE CREATININE CLEARANCE IN PREDICTING GLOMERULAR FILTRATION RATE. ESTIMATED GFR IS NOT APPLICABLE FOR DIALYSIS PATIENTS. PT/[id number] 05:27:00 Test Item Value Reference Range Comments PROTIME (BEAKER) (test butb=160) 10.6 seconds 9.8-12.0 INR (BEAKER) (test lgxg=238) 1.0 <=5.9 PARTIAL THROMBOPLASTIN TIME (BEAKER) (test 29.4 seconds 25.8-34.5 sojb=285) RECOMMENDED COUMADIN/WARFARIN INR THERAPY RANGESSTANDARD DOSE: 2.0 - 3.0 Includes: PROPHYLAXIS forvenous thrombosis, systemic embolization; TREATMENT for venous thrombosis and/or pulmonary embolus.HIGH RISK: Target INR is 2.5-3.5 for patients with mechanical heart valves.PROTHROMBIN [id number] 05:27: 00 Test Item Value Reference Range Comments PROTIME (BEAKER) (test hono=084) 10.6 seconds 9.8-12.0 INR (BEAKER) (test yciy=375) 1.0 <=5.9 RECOMMENDED COUMADIN/WARFARIN INR THERAPY RANGESSTANDARD DOSE: 2.0 - 3.0 Includes: PROPHYLAXIS forvenous thrombosis, systemic embolization; TREATMENT for venous thrombosis and/or pulmonary embolus.HIGH RISK: Target INR is 2.5-3.5 for patients with mechanical heart valves.CBC W/PLT COUNT & AUTO [id number] 05:10:00 Test Item Value Reference Range Comments WHITE BLOOD CELL COUNT (BEAKER) (test dith=047) 5.6 K/ L 4.0-10.0 RED BLOOD CELL COUNT (BEAKER) (test orui=215) 4.35 M/ L 4.00-5.00 HEMOGLOBIN (BEAKER) (test wqbp=510) 14.1 GM/DL 12.0-15.0 HEMATOCRIT (BEAKER) (test siax=162) 40.5 % 36.0-45.0 MEAN CORPUSCULAR VOLUME (BEAKER) (test fldw=089) 93.1 fL 82.0-99.0 MEAN CORPUSCULAR HEMOGLOBIN (BEAKER) (test 32.4 pg 27.0-33.0 wptj=412) MEAN CORPUSCULAR HEMOGLOBIN CONC (BEAKER) (test 34.8 GM/DL 32.0-36.0 vssg=210) RED CELL DISTRIBUTION WIDTH (BEAKER) (test 12.4 % 10.3-14.2 dibh=913) PLATELET COUNT (BEAKER) (test hkws=524) 192 K/CU MM 150-430 MEAN PLATELET VOLUME (BEAKER) (test etzr=574) 10.5 fL 6.5-10.5 NUCLEATED RED BLOOD CELLS (BEAKER) (test 0 /100 WBC 0-0 ulof=639) NEUTROPHILS RELATIVE PERCENT (BEAKER) (test 50 % uphs=976) LYMPHOCYTES RELATIVE PERCENT (BEAKER) (test 39 % bkki=536) MONOCYTES RELATIVE PERCENT (BEAKER) (test 9 % gnkc=008) EOSINOPHILS RELATIVE PERCENT (BEAKER) (test 1 % obht=363) BASOPHILS RELATIVE PERCENT (BEAKER) (test 1 % outh=777) NEUTROPHILS ABSOLUTE COUNT (BEAKER) (test 2.81 K/ L 1.80-8.00 ilxe=519) LYMPHOCYTES ABSOLUTE COUNT (BEAKER) (test 2.20 K/ L 1.48-4.50 czjt=917) MONOCYTES ABSOLUTE COUNT (BEAKER) (test 0.52 K/ L 0.00-1.30 nbsc=640) EOSINOPHILS ABSOLUTE COUNT (BEAKER) (test 0.08 K/ L 0.00-0.50 fdvz=110) BASOPHILS ABSOLUTE COUNT (BEAKER) (test 0.03 K/ L 0.00-0.20 sacn=372) [id number] 17:08:00 Test Item Value Reference Range Comments PROTIME (BEAKER) (test ofmp=063) 10.8 seconds 9.8-12.0 INR (BEAKER) (test bxjo=338) 1.0 <=5.9 PARTIAL THROMBOPLASTIN TIME (BEAKER) (test 24.5 seconds 25.8-34.5 wbrq=919) RECOMMENDED COUMADIN/WARFARIN INR THERAPY RANGESSTANDARD DOSE: 2.0 - 3.0 Includes: PROPHYLAXIS forvenous thrombosis, systemic embolization; TREATMENT for venous thrombosis and/or pulmonary embolus.HIGH RISK: Target INR is 2.5-3.5 for patients with mechanical heart valves.CREATINE KINASE (CK), TOTAL AND [id number] 17:02:00 Test Item Value Reference Range Comments CREATINE KINASE TOTAL (BEAKER) (test nfrl=138) 40 U/L 25-235 CREATINE KINASE-MB (BEAKER) (test lfup=060) 0.8 ng/mL 0.0-4.9 CREATINE KINASE-MB INDEX (BEAKER) (test cbfy=609) 2.0 % CK-MB Reference Range:<5 Normal5-10 Borderline>10 AbnormalTROPONIN [id number] 17:02:00 Test Item Value Reference Range Comments TROPONIN I (BEAKER) (test kqwr=193) < ng/mL 0.00-0.15 Troponin I (TnI) levels must be interpreted in the context of the presenting symptoms and the clinical findings. Elevated TnI levels indicate myocardial damage, but are not specific for ischemic heart disease. Elevated TnI levels are seen in patients with other cardiac conditions (including myocarditis and congestive heart failure), and slight TnI elevations occur in patients with other conditions, including sepsis, renal failure, acidosis, acute neurological disease, and persistent tachyarrhythmia.CBC W/PLT COUNT & AUTO [id number] 16:59:00 Test Item Value Reference Range Comments WHITE BLOOD CELL COUNT (BEAKER) (test pqmj=047) 4.3 K/ L 4.0-10.0 RED BLOOD CELL COUNT (BEAKER) (test ozsz=634) 3.90 M/ L 4.00-5.00 HEMOGLOBIN (BEAKER) (test rzek=935) 12.7 GM/DL 12.0-15.0 HEMATOCRIT (BEAKER) (test lqhg=800) 37.9 % 36.0-45.0 MEAN CORPUSCULAR VOLUME (BEAKER) (test bego=337) 97.2 fL 82.0-99.0 MEAN CORPUSCULAR HEMOGLOBIN (BEAKER) (test 32.6 pg 27.0-33.0 xqfa=505) MEAN CORPUSCULAR HEMOGLOBIN CONC (BEAKER) (test 33.5 GM/DL 32.0-36.0 ypta=092) RED CELL DISTRIBUTION WIDTH (BEAKER) (test 12.6 % 10.3-14.2 sjry=070) PLATELET COUNT (BEAKER) (test hevs=281) 231 K/CU MM 150-430 MEAN PLATELET VOLUME (BEAKER) (test jbwa=471) 11.6 fL 6.5-10.5 NEUTROPHILS RELATIVE PERCENT (BEAKER) (test 57 % jbeo=134) LYMPHOCYTES RELATIVE PERCENT (BEAKER) (test 33 % vpvm=927) MONOCYTES RELATIVE PERCENT (BEAKER) (test 8 % tuli=466) EOSINOPHILS RELATIVE PERCENT (BEAKER) (test 2 % vzyg=352) BASOPHILS RELATIVE PERCENT (BEAKER) (test 1 % ayvf=523) NEUTROPHILS ABSOLUTE COUNT (BEAKER) (test 2.42 K/ L 1.50-10.30 lbup=538) LYMPHOCYTES ABSOLUTE COUNT (BEAKER) (test 1.41 K/ L 1.48-4.50 gucj=118) MONOCYTES ABSOLUTE COUNT (BEAKER) (test 0.32 K/ L 0.00-1.30 aimk=894) EOSINOPHILS ABSOLUTE COUNT (BEAKER) (test 0.07 K/ L 0.00-0.50 kcgp=377) BASOPHILS ABSOLUTE COUNT (BEAKER) (test 0.03 K/ L 0.00-0.20 bcbp=048) COMPREHENSIVE METABOLIC [id number] 16:55:00 Test Item Value Reference Range Comments TOTAL PROTEIN (BEAKER) 7.1 gm/dL 6.0-8.5 Specimen moderately (test odif=538) hemolyzed ALBUMIN (BEAKER) (test 3.5 g/dL 3.5-5.0 Specimen moderately sbsh=7054) hemolyzed ALKALINE PHOSPHATASE 89 U/L 30-115 (BEAKER) (test diix=632) BILIRUBIN TOTAL (BEAKER) 0.3 mg/dL 0.1-1.2 Specimen moderately (test gnwy=338) hemolyzed SODIUM (BEAKER) (test 139 meq/L 135-148 fyml=327) POTASSIUM (BEAKER) (test 4.6 meq/L 3.6-5.5 Specimen moderately zuck=065) hemolyzed CHLORIDE (BEAKER) (test 108 meq/L 98-106 ncsa=232) CO2 (BEAKER) (test 23 meq/L 20-29 klux=391) BLOOD UREA NITROGEN 9 mg/dL 10-26 (BEAKER) (test kzbx=334) CREATININE (BEAKER) (test 0.77 mg/dL 0.50-1.20 Specimen moderately evoj=160) hemolyzed GLUCOSE RANDOM (BEAKER) 115 mg/dL 70-110 (test mksx=288) CALCIUM (BEAKER) (test 9.0 mg/dL 8.5-10.5 ozrl=205) AST (SGOT) (BEAKER) (test 122 U/L 5-40 Specimen moderately kapn=051) hemolyzed ALT (SGPT) (BEAKER) (test 121 U/L 5-50 Specimen moderately obiy=281) hemolyzed EGFR (BEAKER) (test 79 mL/min/1.73 sq m ESTIMATED GFR IS NOT ubkl=1850) ACCURATE CREATININE CLEARANCE IN PREDICTING GLOMERULAR FILTRATION RATE. ESTIMATED GFR IS NOT APPLICABLE FOR DIALYSIS PATIENTS. HEPATITIS C [id number] 11:53:00 Test Item Value Reference Range Comments SCAN RESULT (test otqn=[id number]) MISCELLANEOUS LAB [id number] 12:04:00 Test Item Value Reference Range Comments SCAN RESULT (test qsgn=[id number]) HEPATITIS C PCR, [id number] 10:43:00 Test Item Value Reference Range Comments HCV NUMERIC RESULT (BEAKER) (test sgri=2947) [id number] IU/mL <15 This test uses a Real-Time Polymerase Chain Reaction (RT-PCR) methodology and was performed using ARTIE Ampliprep/ARTIE TaqMan HCV test kit version 2.0 ( [employer]).Reportable range for this assay is 15 - 100,000, 000 IU per mL (1.18 - 8.00 Log IU/mL).HEPATIC FUNCTION [id number] 05:10:00 Test Item Value Reference Range Comments TOTAL PROTEIN (BEAKER) (test uzbl=659) 5.8 gm/dL 6.0-8.3 ALBUMIN (BEAKER) (test lgit=4053) 3.0 g/dL 3.5-5.0 BILIRUBIN TOTAL (BEAKER) (test sayd=794) 0.3 mg/dL 0.2-1.2 BILIRUBIN DIRECT (BEAKER) (test iuxt=274) 0.2 mg/dL 0.1-0.5 ALKALINE PHOSPHATASE (BEAKER) (test cmyc=168) 74 U/L 40-150 AST (SGOT) (BEAKER) (test xkbf=860) 143 U/L 5-34 ALT (SGPT) (BEAKER) (test ftoj=050) 150 U/L 6-55 BASIC METABOLIC [id number] 05:10:00 Test Item Value Reference Range Comments SODIUM (BEAKER) (test 140 meq/L 136-145 pcjy=187) POTASSIUM (BEAKER) (test 3.8 meq/L 3.5-5.1 ytfc=476) CHLORIDE (BEAKER) (test 109 meq/L 98-107 ayxx=063) CO2 (BEAKER) (test 27 meq/L 22-29 aizy=596) BLOOD UREA NITROGEN 7 mg/dL 7-21 (BEAKER) (test tcfc=365) CREATININE (BEAKER) (test 0.71 mg/dL 0.57-1.25 nyfy=819) GLUCOSE RANDOM (BEAKER) 110 mg/dL 70-105 (test mmtw=653) CALCIUM (BEAKER) (test 8.8 mg/dL 8.4-10.2 wtfb=686) EGFR (BEAKER) (test 86 mL/min/1.73 sq m ESTIMATED GFR IS NOT wdlh=1400) ACCURATE CREATININE CLEARANCE IN PREDICTING GLOMERULAR FILTRATION RATE. ESTIMATED GFR IS NOT APPLICABLE FOR DIALYSIS PATIENTS. CBC (HEMOGRAM ONLY)[id number] 04:58:00 Test Item Value Reference Range Comments WHITE BLOOD CELL COUNT (BEAKER) (test dcpz=439) 4.4 K/ L 4.0-10.0 RED BLOOD CELL COUNT (BEAKER) (test duex=674) 3.61 M/ L 4.00-5.00 HEMOGLOBIN (BEAKER) (test nxyb=842) 12.3 GM/DL 12.0-15.0 HEMATOCRIT (BEAKER) (test zwxa=849) 35.3 % 36.0-45.0 MEAN CORPUSCULAR VOLUME (BEAKER) (test edrh=813) 97.6 fL 82.0-99.0 MEAN CORPUSCULAR HEMOGLOBIN (BEAKER) (test 34.2 pg 27.0-33.0 uggy=433) MEAN CORPUSCULAR HEMOGLOBIN CONC (BEAKER) (test 35.0 GM/DL 32.0-36.0 wzff=585) RED CELL DISTRIBUTION WIDTH (BEAKER) (test 11.4 % 10.3-14.2 cxks=666) PLATELET COUNT (BEAKER) (test xaly=641) 117 K/CU MM 150-430 MEAN PLATELET VOLUME (BEAKER) (test oxun=107) 7.5 fL 6.5-10.5 NUCLEATED RED BLOOD CELLS (BEAKER) (test 0 /100 WBC 0-0 qxue=802) [id number] 20:52:00 Test Item Value Reference Range Comments ACTIVATED CLOTTING TIME 137 sec TESTED AT [facility] [address] (BEAKER) (test uudh=398) [place] [id number] 19:57:00 Test Item Value Reference Range Comments ACTIVATED CLOTTING TIME 142 sec TESTED AT [facility] [address] (BEAKER) (test kogd=452) [place] [id number] 17:50:00 Test Item Value Reference Range Comments ACTIVATED CLOTTING TIME 142 sec TESTED AT [facility] [address] (BEAKER) (test kbtz=893) [place] [address] [id number] 15:35:00 Test Item Value Reference Range Comments ACTIVATED CLOTTING TIME 167 sec TESTED AT [facility] [address] (BEAKER) (test axyq=721) [place] [address] ANTI-NUCLEAR ANTIBODY (LUCITA)2016-09-08 13:56:00 Test Item Value Reference Range Comments ANTI-NUCLEAR ANTIBODY (LUCITA) (BEAKER) (test Negative Negative vbwa=458) HEPATITIS B CORE ANTIBODY, [id number] 11:51:00 Test Item Value Reference Range Comments HEPATITIS B CORE TOTAL ANTIBODY (BEAKER) (test Reactive Nonreactive slnp=306) [id number] 10:14:00 Test Item Value Reference Range Comments ACTIVATED CLOTTING TIME 302 sec TESTED AT [place] [address] [facility]BE[facility]ER[facility] (test sejw=861) [place] [address] [id number] 07:02:00 Test Item Value Reference Range Comments FERRITIN (BEAKER) (test kzzu=631) 355 ng/mL 5-275 Effective 04/18/2014: Reference Range ChangeNew: Male 5-275 Previous: Male 22-322 Female 5-275 Female 10-291HEPATITIS A ANTIBODY, [id number] 06:22:00 Test Item Value Reference Range Comments HEPATITIS A IGG ANTIBODY (BEAKER) (test imbn=0570) Reactive Nonreactive HEPATITIS B SURFACE [id number] 06:20:00 Test Item Value Reference Range Comments HEPATITIS B SURFACE ANTIBODY (BEAKER) (test 162.2 mIU/mL <8.0 gawv=246) ALPHA FETOPROTEIN (AFP), TUMOR [id number] 06:20:00 Test Item Value Reference Range Comments ALPHA-FETOPROTEIN (BEAKER) (test ostd=4181) 2.4 ng/mL <10.0 Effective 04/18/2014: Reference Range ChangeNew: <10.0 Previous: 0.0- 8.0IRON, TIBC, % SAT. (WITHOUT FERRITIN)2016-09-08 06:19:00 Test Item Value Reference Range Comments IRON (BEAKER) (test twio=189) 106 ug/dL 40-160 TOTAL IRON BINDING CAPACITY (BEAKER) (test 264 ug/dL 250-450 qffs=193) IRON % SATURATION (2) (BEAKER) (test zxbn=0413) 40 % 20-55 LIPID [id number] 06:00:00 Test Item Value Reference Range Comments TRIGLYCERIDES (BEAKER) (test lwra=379) 74 mg/dL CHOLESTEROL (BEAKER) (test zocx=213) 130 mg/dL HDL CHOLESTEROL (BEAKER) (test wsml=546) 41 mg/dL LDL CHOLESTEROL CALCULATED (BEAKER) (test 74 mg/dL udlq=987) Triglyceride Reference Range: Low Risk <150 Borderline 150- 199 High Risk 200-499 Very High Risk >=500Cholesterol Reference Range: Low Risk <200 Borderline 200-239 High Risk > 240HDL Cholesterol Reference Range: Low Risk >=60 High Risk <40LDL Cholesterol Reference Range: Optimal <100 Near Optimal 100-129 Borderline 130-159 High 160-189 Very High >=190 FastingHEPATIC FUNCTION [id number] 06:00:00 Test Item Value Reference Range Comments TOTAL PROTEIN (BEAKER) (test rkwm=303) 6.6 gm/dL 6.0-8.3 ALBUMIN (BEAKER) (test obev=8067) 3.4 g/dL 3.5-5.0 BILIRUBIN TOTAL (BEAKER) (test nazg=814) 0.4 mg/dL 0.2-1.2 BILIRUBIN DIRECT (BEAKER) (test czdq=405) 0.2 mg/dL 0.1-0.5 ALKALINE PHOSPHATASE (BEAKER) (test bhxu=191) 81 U/L 40-150 AST (SGOT) (BEAKER) (test pswh=437) 145 U/L 5-34 ALT (SGPT) (BEAKER) (test kick=002) 155 U/L 6-55 FastingHEPATITIS PANEL, [id number] 15:06:00 Test Item Value Reference Range Comments HEPATITIS A IGM ANTIBODY (BEAKER) (test Nonreactive Nonreactive rmva=365) HEPATITIS B CORE IGM ANTIBODY (BEAKER) (test Nonreactive Nonreactive vxuj=216) HEPATITIS C ANTIBODY (BEAKER) (test mxyl=341) Reactive Nonreactive HEPATITIS B SURFACE ANTIGEN (2) (BEAKER) (test Nonreactive Nonreactive pupg=8997) COMPREHENSIVE METABOLIC [id number] 08:18:00 Test Item Value Reference Range Comments TOTAL PROTEIN (BEAKER) 6.1 gm/dL 6.0-8.3 (test miwi=161) ALBUMIN (BEAKER) (test 3.2 g/dL 3.5-5.0 gzth=2105) ALKALINE PHOSPHATASE 74 U/L 40-150 (BEAKER) (test lloh=926) BILIRUBIN TOTAL (BEAKER) 0.4 mg/dL 0.2-1.2 (test thxt=357) SODIUM (BEAKER) (test 141 meq/L 136-145 cyhe=264) POTASSIUM (BEAKER) (test 4.0 meq/L 3.5-5.1 diwp=028) CHLORIDE (BEAKER) (test 111 meq/L 98-107 nvwo=645) CO2 (BEAKER) (test 25 meq/L 22-29 luav=593) BLOOD UREA NITROGEN 6 mg/dL 7-21 (BEAKER) (test ppky=583) CREATININE (BEAKER) (test 0.68 mg/dL 0.57-1.25 gjzs=045) GLUCOSE RANDOM (BEAKER) 80 mg/dL 70-105 (test xdxw=941) CALCIUM (BEAKER) (test 8.1 mg/dL 8.4-10.2 dprk=810) AST (SGOT) (BEAKER) (test 144 U/L 5-34 trnh=354) ALT (SGPT) (BEAKER) (test 151 U/L 6-55 zmaf=015) EGFR (BEAKER) (test 91 mL/min/1.73 sq m ESTIMATED GFR IS NOT opup=3651) ACCURATE CREATININE CLEARANCE IN PREDICTING GLOMERULAR FILTRATION RATE. ESTIMATED GFR IS NOT APPLICABLE FOR DIALYSIS PATIENTS. FastingLIPID [id number] 08:12:00 Test Item Value Reference Range Comments TRIGLYCERIDES (BEAKER) (test wvzi=976) 82 mg/dL CHOLESTEROL (BEAKER) (test wlqp=451) 130 mg/dL HDL CHOLESTEROL (BEAKER) (test cxtm=082) 38 mg/dL LDL CHOLESTEROL CALCULATED (BEAKER) (test 76 mg/dL todh=136) Triglyceride Reference Range: Low Risk <150 Borderline 150- 199 High Risk 200-499 Very High Risk >=500Cholesterol Reference Range: Low Risk <200 Borderline 200-239 High Risk > 240HDL Cholesterol Reference Range: Low Risk >=60 High Risk <40LDL Cholesterol Reference Range: Optimal <100 Near Optimal 100-129 Borderline 130-159 High 160-189 Very High >=190 [id number] 13:59:00 Test Item Value Reference Range Comments RPR SCREEN (BEAKER) (test ibvw=985) Nonreactive Nonreactive HEMOGLOBIN [id number] 08:42:00 Test Item Value Reference Range Comments HEMOGLOBIN A1C (BEAKER) (test jgot=467) 5.1 % 4.3-6.1 FastingT4, [id number] 08:09:00 Test Item Value Reference Range Comments FREE T4 (BEAKER) (test rwai=051) 0.96 ng/dL 0.70-1.48 TSH/FREE T4 IF [id number] 07:45:00 Test Item Value Reference Range Comments THYROID STIMULATING HORMONE (BEAKER) (test 7.12 uIU/mL 0.35-4.94 nvfs=540) VITAMIN [id number] 07:33:00 Test Item Value Reference Range Comments VITAMIN B12 (BEAKER) (test uyqy=376) 542 pg/mL 213-816 LIPID [id number] 07:06:00 Test Item Value Reference Range Comments TRIGLYCERIDES (BEAKER) (test dgdl=481) 88 mg/dL CHOLESTEROL (BEAKER) (test chdy=133) 131 mg/dL HDL CHOLESTEROL (BEAKER) (test ibkx=924) 37 mg/dL LDL CHOLESTEROL CALCULATED (BEAKER) (test 76 mg/dL vvoz=602) Triglyceride Reference Range: Low Risk <150 Borderline 150- 199 High Risk 200-499 Very High Risk >=500Cholesterol Reference Range: Low Risk <200 Borderline 200-239 High Risk > 240HDL Cholesterol Reference Range: Low Risk >=60 High Risk <40LDL Cholesterol Reference Range: Optimal <100 Near Optimal 100-129 Borderline 130-159 High 160-189 Very High >=190 FastingHEPATIC FUNCTION [id number] 00:50:00 Test Item Value Reference Range Comments TOTAL PROTEIN (BEAKER) (test 7.2 gm/dL 6.0-8.3 Specimen slightly hemolyzed amas=045) ALBUMIN (BEAKER) (test 3.7 g/dL 3.5-5.0 Specimen slightly hemolyzed bezc=2307) BILIRUBIN TOTAL (BEAKER) (test 0.3 mg/dL 0.2-1.2 Specimen slightly hemolyzed aymp=637) BILIRUBIN DIRECT (BEAKER) (test 0.1 mg/dL 0.1-0.5 Specimen slightly hemolyzed avtq=924) ALKALINE PHOSPHATASE (BEAKER) 109 U/L 40-150 (test afyy=753) AST (SGOT) (BEAKER) (test 127 U/L 5-34 Specimen slightly hemolyzed vzgh=584) ALT (SGPT) (BEAKER) (test 144 U/L 6-55 Specimen slightly hemolyzed bjzt=254) CBC W/PLT COUNT & AUTO [id number] 00:38:00 Test Item Value Reference Range Comments WHITE BLOOD CELL COUNT (BEAKER) (test irgy=749) 5.3 K/ L 4.0-10.0 RED BLOOD CELL COUNT (BEAKER) (test svpd=022) 3.96 M/ L 4.00-5.00 HEMOGLOBIN (BEAKER) (test mcky=806) 13.1 GM/DL 12.0-15.0 HEMATOCRIT (BEAKER) (test qsxg=537) 38.6 % 36.0-45.0 MEAN CORPUSCULAR VOLUME (BEAKER) (test lvcq=667) 97.5 fL 82.0-99.0 MEAN CORPUSCULAR HEMOGLOBIN (BEAKER) (test 33.2 pg 27.0-33.0 pxqn=996) MEAN CORPUSCULAR HEMOGLOBIN CONC (BEAKER) (test 34.0 GM/DL 32.0-36.0 dddc=744) RED CELL DISTRIBUTION WIDTH (BEAKER) (test 12.6 % 10.3-14.2 bdfo=111) PLATELET COUNT (BEAKER) (test xqla=216) 157 K/CU MM 150-430 MEAN PLATELET VOLUME (BEAKER) (test crjg=025) 7.7 fL 6.5-10.5 NUCLEATED RED BLOOD CELLS (BEAKER) (test 0 /100 WBC 0-0 sjcc=828) NEUTROPHILS RELATIVE PERCENT (BEAKER) (test 42 % ngcj=888) LYMPHOCYTES RELATIVE PERCENT (BEAKER) (test 49 % kgne=434) MONOCYTES RELATIVE PERCENT (BEAKER) (test 8 % phmq=010) EOSINOPHILS RELATIVE PERCENT (BEAKER) (test 1 % lbue=867) BASOPHILS RELATIVE PERCENT (BEAKER) (test 1 % zmbf=359) NEUTROPHILS ABSOLUTE COUNT (BEAKER) (test 2.20 K/ L 1.80-8.00 iocs=909) LYMPHOCYTES ABSOLUTE COUNT (BEAKER) (test 2.58 K/ L 1.48-4.50 zhiu=351) MONOCYTES ABSOLUTE COUNT (BEAKER) (test 0.42 K/ L 0.00-1.30 bcng=537) EOSINOPHILS ABSOLUTE COUNT (BEAKER) (test 0.03 K/ L 0.00-0.50 ikmb=348) BASOPHILS ABSOLUTE COUNT (BEAKER) (test 0.06 K/ L 0.00-0.20 pwph=604) 0.00(MANUAL DIFFERENTIAL)2016-09-06 00:38:00 Test Item Value Reference Range Comments TOTAL COUNTED (BEAKER) (test whev=5737) [id number] 00:27:00 Test Item Value Reference Range Comments PARTIAL THROMBOPLASTIN TIME (BEAKER) (test 27.6 seconds 22.5-36.0 abwn=278) PROTHROMBIN TIME/[id number] 00:26:00 Test Item Value Reference Range Comments PROTIME (BEAKER) (test jixj=778) 12.8 seconds 11.7-14.7 INR (BEAKER) (test snbi=589) 1.0 <=5.9 RECOMMENDED COUMADIN/WARFARIN INR THERAPY RANGESSTANDARD DOSE: 2.0 - 3.0 Includes: PROPHYLAXIS forvenous thrombosis, systemic embolization; TREATMENT for venous thrombosis and/or pulmonary embolus.HIGH RISK: Target INR is 2.5-3.5 for patients with mechanical heart valves.URINALYSIS W/ [id number] 00 :15:00 Test Item Value Reference Range Comments COLOR (BEAKER) (test airr=608) Light Yellow CLARITY (BEAKER) (test npgm=541) Clear SPECIFIC GRAVITY UA (BEAKER) (test bnus=181) 1.003 1.001-1.035 PH UA (BEAKER) (test uzcz=849) 6.5 5.0-8.0 PROTEIN UA (BEAKER) (test sfrb=981) Negative Negative GLUCOSE UA (BEAKER) (test iluq=377) Negative Negative KETONES UA (BEAKER) (test qcfx=112) Negative Negative BILIRUBIN UA (BEAKER) (test qnsc=643) Negative Negative BLOOD UA (BEAKER) (test elay=768) Negative Negative NITRITE UA (BEAKER) (test posx=781) Negative Negative LEUKOCYTE ESTERASE UA (BEAKER) (test vxxo=000) Negative Negative UROBILINOGEN UA (BEAKER) (test rnby=135) 0.2 mg/dL 0.2-1.0 RBC UA (BEAKER) (test bsbx=948) 0 /HPF WBC UA (BEAKER) (test oxap=259) 1 /HPF SQUAMOUS EPITHELIAL (BEAKER) (test hwqe=326) < /HPF AMORPHOUS CRYSTALS (BEAKER) (test jyhk=6192) Rare SOURCE(BEAKER) (test sqjf=5464) Urine, Voided CREATINE KINASE (CK), TOTAL AND [id number] 23:56:00 Test Item Value Reference Range Comments CREATINE KINASE TOTAL (BEAKER) (test fksc=196) 88 U/L 29-200 CREATINE KINASE-MB (BEAKER) (test btor=649) 1.9 ng/mL 0.0-6.6 CREATINE KINASE-MB INDEX (BEAKER) (test mmfm=088) 2.2 % Effective 04/18/2014: CK-MB Reference Range ChangeNew: 0.0-6.6 Previous: 0.0- 4.9CK-MB Reference Range:<6.7 Normal6.7-10.0 Borderline>10.0 AbnormalTROPONIN [id number] 23:56:00 Test Item Value Reference Range Comments TROPONIN I (BEAKER) (test usfc=266) 0.01 ng/mL 0.00-0.03 Effective 04/18/2014: Reference Range ChangeNew: 0.00-0.03 Previous 0.00- 0.15Troponin I (TnI) levels must be interpreted in the context of the presenting symptoms and the clinical findings. Elevated TnI levels indicate myocardial damage, but are not specific for ischemic heart disease. Elevated TnI levels are seen in patients with other cardiac conditions (including myocarditis and congestive heartfailure), and slight TnI elevations occur in patients with other conditions, including sepsis, renalfailure, acidosis, acute neurological disease, and persistent tachyarrhythmia.BASIC METABOLIC [id number] 23:50:00 Test Item Value Reference Range Comments SODIUM (BEAKER) (test 138 meq/L 136-145 hvec=162) POTASSIUM (BEAKER) (test 4.3 meq/L 3.5-5.1 Specimen slightly airh=839) hemolyzed CHLORIDE (BEAKER) (test 107 meq/L 98-107 egde=424) CO2 (BEAKER) (test 22 meq/L 22-29 hckf=002) BLOOD UREA NITROGEN 10 mg/dL 7-21 (BEAKER) (test tsav=076) CREATININE (BEAKER) (test 0.78 mg/dL 0.57-1.25 Specimen slightly wonf=705) hemolyzed GLUCOSE RANDOM (BEAKER) 80 mg/dL 70-105 (test npvb=600) CALCIUM (BEAKER) (test 9.8 mg/dL 8.4-10.2 briq=633) EGFR (BEAKER) (test 78 mL/min/1.73 sq m ESTIMATED GFR IS NOT ehyv=9379) ACCURATE CREATININE CLEARANCE IN PREDICTING GLOMERULAR FILTRATION RATE. ESTIMATED GFR IS NOT APPLICABLE FOR DIALYSIS PATIENTS.
== END 2018-05-20 17:00 | disposition home or self-care (01) ==
LOC: ER 14:07
PROC: 0JQQ0ZZ Repair Right Foot Subcutaneous Tissue and Fascia, Open Approach (ICD-10-PCS; principal; 2018-05-20)
DX: S91.311A Laceration without foreign body, right foot, initial encounter (principal); J20.9 Acute bronchitis, unspecified; J43.9 Emphysema, unspecified; W25.XXXA Contact with sharp glass, initial encounter; Y93.01 Activity, walking, marching and hiking; Y92.9 Unspecified place or not applicable; F17.210 Nicotine dependence, cigarettes, uncomplicated; F31.9 Bipolar disorder, unspecified; F41.9 Anxiety disorder, unspecified
CPT/HCPCS: 71046; 94640; 96361; 96374; 96375; 99284; J2001; J2930; J3010; J7030